=== PATIENT | female | born 1970 | race Caucasian/White ===

== ENCOUNTER → 2016-05-31 | Outpatient (CLI) | payer MEDICARE, MEDICAID ==
[~2016-05-31] MED LIST: ATOR20TA15 PO; BLAC540C PO; CARV3.12 PO; ENAL20TA PO; ENAL5TAB PO; FERR324T4 PO; FIBE625T10 PO; FISH1000 PO; HUMSS SQ; LEVEMIR SQ; LEVO150T7 PO; LEVO200T4 PO; MULT1TAB46 PO; NALO1TAB PO; NORT10CA PO; NOVOLOGP2 SQ; OMEG100037 PO; OMEP40CA2 PO; PERC7.5T13 PO; PRAV20TA2 PO; PROM12.54 PO; PROM25TA10 PO; PROM25TA5 PO; RANI150T PO; REGL5TAB PO; RISP2TAB2 PO; RISP2TAB37 PO; SEVE800T PO; SUCR5CHW CHEW; TEMA15CA PO; VIST25CA PO; VITA2000 PO; VITA250C3 CHEW
[2016-05-31 08:29] LABS: LDL CHOLESTEROL 43 MG/DL (0-99)
[2016-05-31 15:56] LABS: HEMOGLOBIN A1a 1.2 %; HEMOGLOBIN A1b 2.6 %; HEMOGLOBIN LA1C 2.4 %; HEMOGLOBIN P3 5.1 %
== END ==
LOC: CLAB 07:24
DX: E10.65 Type 1 diabetes mellitus with hyperglycemia (principal); E55.9 Vitamin D deficiency, unspecified
CPT/HCPCS: 36415; 80061; 82306; 83036

== ENCOUNTER → 2016-07-30 | Outpatient (CLI) | payer MEDICARE, MEDICAID | LOC: CLAB 15:42 | DX: E10.65 Type 1 diabetes mellitus with hyperglycemia (principal) | CPT/HCPCS: 36415; 82947; 84681 ==

== ENCOUNTER → 2016-09-04 | Outpatient (CLI) | payer MEDICARE, MEDICAID ==
[2016-09-04 08:18] LABS: AUTOMATED NEUTROPHIL # 8.1 TH/MM3 (1.8-7.7); BASOPHIL # 0.2 TH/MM3 (0-0.2); BASOPHIL % 1.6 % (0.0-2.0); EOSINOPHIL # 0.3 TH/MM3 (0-0.4); EOSINOPHIL % 2.1 % (0.0-4.0); HEMO FLAGS DIFF FINAL; LYMPH % 22.4 % (9.0-44.0); LYMPHOCYTE # 2.7 TH/MM3 (1.0-4.8); MEAN CELL VOLUME 92.5 FL (80.0-100.0); MEAN CORPUSCULAR HEMOGLOBIN 29.5 PG (27.0-34.0); MEAN CORPUSCULAR HGB CONC 31.9 % (32.0-36.0); MONO % 6.4 % (0.0-8.0); NEUT % 67.5 % (16.0-70.0); PLATELET COUNT 409 TH/MM3 (150-450); RED BLOOD COUNT 3.89 MIL/MM3 (4.00-5.30); RED CELL DISTRIBUTION WIDTH 12.5 % (11.6-17.2)
[2016-09-04 08:40] LABS: ANION GAP 8 MEQ/L (5-15); AST (GOT) 23 U/L (15-37); BICARBONATE 28.8 MEQ/L (21.0-32.0); BLOOD UREA NITROGEN 39 MG/DL (7-18); CHLORIDE 103 MEQ/L (98-107); GLOMERULAR FILTRATION RATE 12 ML/MIN (>89); GLUCOSE,FASTING 86 MG/DL (74-99); POTASSIUM 3.6 MEQ/L (3.5-5.1); SODIUM (NA) 140 MEQ/L (136-145)
[2016-09-04 08:43] LABS: ALKALINE PHOSPHATASE 102 U/L (45-117); ALT (GPT) 42 U/L (10-53); TOTAL BILIRUBIN ADULT 0.3 MG/DL (0.2-1.0)
== END ==
LOC: CLAB 07:32
PROVIDERS: ATTEND Internal Medicine Gastroenterology
DX: R11.10 Vomiting, unspecified (principal); R19.7 Diarrhea, unspecified
CPT/HCPCS: 36415; 80053; 83690; 85025

== ENCOUNTER → 2016-09-30 | Outpatient (CLI) | payer MEDICARE, MEDICAID ==
[~2016-09-30] MED LIST changes: -ENAL20TA PO; -HUMSS SQ; -LEVO200T4 PO; -OMEG100037 PO; -PERC7.5T13 PO; -PRAV20TA2 PO; -PROM25TA5 PO; -RISP2TAB2 PO
[2016-09-30 09:58] LABS: ANION GAP 8 MEQ/L (5-15)
[2016-09-30 10:00] LABS: ALKALINE PHOSPHATASE 89 U/L (45-117); ALT (GPT) 33 U/L (10-53); AST (GOT) 23 U/L (15-37); BLOOD UREA NITROGEN 63 MG/DL (7-18); CHLORIDE 102 MEQ/L (98-107); FREE T3 1.49 PG/ML (2.18-3.98); FREE T4 1.32 NG/DL (0.76-1.46); GLOMERULAR FILTRATION RATE 11 ML/MIN (>89); HDL CHOLESTEROL 56.4 MG/DL (40.0-60.0); LDL CHOLESTEROL 42 MG/DL (0-99); LDL CHOLESTEROL DIRECT 61 MG/DL (0-99); POTASSIUM 3.9 MEQ/L (3.5-5.1); SODIUM (NA) 138 MEQ/L (136-145); TOTAL BILIRUBIN ADULT 0.2 MG/DL (0.2-1.0)
[2016-09-30 10:11] LABS: GLUCOSE,FASTING 39 MG/DL (74-99)
[2016-09-30 15:41] LABS: HEMOGLOBIN A1a 1.4 %; HEMOGLOBIN A1b 0.8 %; HEMOGLOBIN Ao 80.6 %; HEMOGLOBIN F 1.4 %; HEMOGLOBIN LA1C 2.3 %; HEMOGLOBIN P3 5.4 %
== END ==
LOC: CLAB 08:48
DX: E55.9 Vitamin D deficiency, unspecified (principal); E03.9 Hypothyroidism, unspecified; E10.65 Type 1 diabetes mellitus with hyperglycemia
CPT/HCPCS: 36415; 80053; 80061; 82306; 83036; 83721; 84439; 84443; 84481

== ENCOUNTER → 2016-11-20 | Day surgery (SDC) | payer MEDICARE, MEDICAID ==
[~2016-11-20] MED LIST changes: +LACTATED RINGER'S 1000 ML INJ 1,000 ML ONE; +LEVOFLOXACIN 500 MG PREMIX INJ 100 ML IV ONE; +ONABOTULINUMTOXINA INJ 100 UNITS/VIAL ONE; +PROPOFOL 200 MG/20 ML AMP IV ONE; +SODIUM CHLORIDE 0.9% INJ 10 ML ONE
--- NOTE | 2016-11-20 10:07 | GIPROC ---
[facility] [address] [facility], [address] EGD WITH DILATION PROCEDURE REPORT EXAM DATE: 11/20/2016 PATIENT NAME: Temitope Marc MR#: [id number] BIRTHDATE: 1970 ATTENDING: Gem Davison MD ORDER #: [id number] [employer] DIRECTOR: Mary Alexander RN STATUS: outpatient INDICATIONS: The patient is a 46 yr old female here for an EGD with dilation due to gastroparesis, dysphagia PROCEDURE PERFORMED: EGD w/ biopsy EGD w/ directed submucosal injection(s), any substance EGD w/ dilation of esophagus via guidewire MEDICATIONS: None and Per Anesthesia. TOPICAL ANESTHETIC: none CONSENT: The patient understands the risks and benefits of the procedure and understands that these risks include, but are not limited to: sedation, allergic reaction, infection, perforation and/or bleeding. Alternative means of evaluation and treatment include, among others: physical exam, x-rays, and/or surgical intervention. The patient elects to proceed with this endoscopic procedure. medical equipment was checked for proper function. Hand hygiene and appropriate measures for infection prevention was taken. After the risks, benefits and alternatives of the procedure were thoroughly explained, Informed consent was verified, confirmed and timeout was successfully executed by the treatment team. The patient was anesthetized with topical anesthesia and the EG-2990i ([id number]), EC-2990i ([id number]), and EG-2990i ([id number]) endoscope was introduced through the mouth and advanced to the second portion of the duodenum. The instrument was slowly withdrawn as the mucosa was fully examined. Gastritis antrum-biopsy esophagitis distal esophagus -biopsy esophageal spasm. Botox injected 100 units in pyloric channel-25 units in each quadrant. Dilation was performed at gastroesophageal junction. DILATOR: SIZE(S): RESISTANCE: HEME: APPEARANCE: Dilator: Savary over guidewire Size(s): 16 COMMENT: Retroflexed views revealed a hiatal hernia ADVERSE EVENTS: There were no complications. IMPRESSIONS: 1. Gastritis antrum-biopsy esophagitis distal esophagus -biopsy esophageal spasm 2. Retroflexed views revealed a hiatal hernia RECOMMENDATIONS: 1. Anti-reflux regimen 2. Continue PPI 3. Avoid NSAIDS 4. Fu nephrology REPEAT EXAM: EGD pending biopsy results Gem Davison MD eSigned: Gem Davison MD 11/20/2016 10:07 AM cc: Joyce Angulo PATIENT NAME: Temitope Marc MR#: [id number]
== END | disposition home or self-care (01) ==
LOC: ESDC 07:17
PROVIDERS: ATTEND Internal Medicine Gastroenterology
DX: K31.84 Gastroparesis (principal); R13.10 Dysphagia, unspecified; K29.70 Gastritis, unspecified, without bleeding; K20.9 Esophagitis, unspecified; K22.4 Dyskinesia of esophagus; K44.9 Diaphragmatic hernia without obstruction or gangrene; E11.9 Type 2 diabetes mellitus without complications; Z79.4 Long term (current) use of insulin
CPT/HCPCS: 00740; 43236; 43239; 43248; 82948; 88305; 88312; J0585; J1956; J3010; J7120

== ENCOUNTER → 2017-01-07 | Outpatient (CLI) | payer MEDICARE, MEDICAID ==
[~2017-01-07] MED LIST changes: -LACTATED RINGER'S 1000 ML INJ 1,000 ML ONE; -LEVOFLOXACIN 500 MG PREMIX INJ 100 ML IV ONE; -ONABOTULINUMTOXINA INJ 100 UNITS/VIAL ONE; -PROPOFOL 200 MG/20 ML AMP IV ONE; -SODIUM CHLORIDE 0.9% INJ 10 ML ONE
[2017-01-07 11:07] LABS: ANION GAP 7 MEQ/L (5-15); AST (GOT) 205 U/L (15-37); BICARBONATE 30.3 MEQ/L (21.0-32.0); BLOOD UREA NITROGEN 35 MG/DL (7-18); CHLORIDE 101 MEQ/L (98-107); GLOMERULAR FILTRATION RATE 15 ML/MIN (>89); GLUCOSE,FASTING 90 MG/DL (74-99); POTASSIUM 3.7 MEQ/L (3.5-5.1); SODIUM (NA) 138 MEQ/L (136-145)
[2017-01-07 11:18] LABS: ALKALINE PHOSPHATASE 177 U/L (45-117); ALT (GPT) 263 U/L (10-53); FREE T3 1.73 PG/ML (2.18-3.98); FREE T4 0.98 NG/DL (0.76-1.46); HDL CHOLESTEROL 105.5 MG/DL (40.0-60.0); LDL CHOLESTEROL 41 MG/DL (0-99); TOTAL BILIRUBIN ADULT 0.3 MG/DL (0.2-1.0)
[2017-01-07 17:05] LABS: HEMOGLOBIN A1a 1.3 %; HEMOGLOBIN A1b 0.9 %; HEMOGLOBIN Ao 81.1 %; HEMOGLOBIN F 1.3 %; HEMOGLOBIN LA1C 2.1 %; HEMOGLOBIN P3 4.3 %
== END ==
LOC: CLAB 09:50
DX: E03.9 Hypothyroidism, unspecified (principal); E10.65 Type 1 diabetes mellitus with hyperglycemia
CPT/HCPCS: 36415; 80053; 80061; 83036; 84439; 84443; 84481

== ENCOUNTER → 2017-02-17 | Outpatient (CLI) | payer MEDICARE, MEDICAID ==
[~2017-02-17] MED LIST changes: +SEVE800 PO; -SEVE800T PO
[2017-02-17 14:45] LABS: ANA SCREEN NEG (NEG)
[2017-02-17 16:08] LABS: INDIRECT BILIRUBIN 0.2 MG/DL (0.0-0.8); TOTAL BILIRUBIN ADULT 0.3 MG/DL (0.2-1.0)
[2017-02-19 23:51] LABS: IGA SERUM 309 mg/dL (81-463)
[2017-02-19 23:53] LABS: (LFP)ALT 57 U/L (6-29); A2 MACROGLOBULIN 383 mg/dL (106-279); FIBROSIS STAGE F2; GGT(LFP) 242 U/L (3-55); HAPTOGLOBIN (LFP) 72 mg/dL (43-212); NECROINFLAMM ACT GRADE A1-A2; REFERENCE ID 1693930; TOTAL BILIRUBIN (LFP) 0.3 mg/dL (0.2-1.2)
[2017-02-20 03:50] LABS: ENDOMYSIAL AB TITER ND (<1:5); TISSUE TRANSGLUTAMINASE AB LESS THAN 1 U/mL (0-4)
[2017-02-21 05:40] LABS: MITOCHONDRIAL ABS LESS THAN 20.0 U (<=20.0)
== END ==
LOC: CLAB 07:53
PROVIDERS: ATTEND Internal Medicine Gastroenterology
DX: R79.89 Other specified abnormal findings of blood chemistry (principal); I10 Essential (primary) hypertension; R11.0 Nausea
CPT/HCPCS: 36415; 80074; 80076; 82103; 82172; 82247; 82390; 82784; 82977; 83010; 83516; 83520; 83883; 84460; 86038; 86255

== ENCOUNTER → 2017-04-14 | Outpatient (CLI) | payer MEDICARE, MEDICAID ==
[2017-04-14 09:37] LABS: ALBUMIN 2.6 GM/DL (3.4-5.0); AST (GOT) 110 U/L (15-37); BICARBONATE 28.3 MEQ/L (21.0-32.0); BLOOD UREA NITROGEN 31 MG/DL (7-18); CALCIUM 8.2 MG/DL (8.5-10.1); CHLORIDE 98 MEQ/L (98-107); CREATININE 3.42 MG/DL (0.50-1.00); GLOMERULAR FILTRATION RATE 15 ML/MIN (>89); GLUCOSE,FASTING 321 MG/DL (74-99); SODIUM (NA) 134 MEQ/L (136-145)
[2017-04-14 09:38] LABS: CHOLESTEROL 165 MG/DL (120-200); TRIGLYCERIDES 166 MG/DL (42-150)
[2017-04-14 09:54] LABS: ALKALINE PHOSPHATASE 156 U/L (45-117); ALT (GPT) 121 U/L (10-53); CHOLESTEROL/ HDL RATIO 2.21 RATIO; FREE T3 1.41 PG/ML (2.18-3.98); FREE T4 0.97 NG/DL (0.76-1.46); HDL CHOLESTEROL 74.5 MG/DL (40.0-60.0); LDL CHOLESTEROL 57 MG/DL (0-99); TOTAL BILIRUBIN ADULT 0.2 MG/DL (0.2-1.0); TOTAL PROTEIN 6.1 GM/DL (6.4-8.2)
[2017-04-14 09:58] LABS: HEMOGLOBIN A1C 8.6 % (4.3-6.0)
== END ==
LOC: CLAB 08:54
DX: E03.9 Hypothyroidism, unspecified (principal); E10.65 Type 1 diabetes mellitus with hyperglycemia; E55.9 Vitamin D deficiency, unspecified
CPT/HCPCS: 36415; 80053; 80061; 82306; 83036; 84439; 84443; 84481

== ENCOUNTER 2017-07-26 14:15 | Emergency (ER) | payer MEDICARE, MEDICAID ==
[~2017-07-26] VITALS: Ht 170.2 cm; Wt 69.0 kg
[~2017-07-26 14:15] MED LIST changes: -CARV3.12 PO; -FERR324T4 PO; -NALO1TAB PO
[2017-07-26 14:25] VITALS: BP 144/87; PULSE 94; RESP 15; TEMP 98.6; O2SAT 97
[2017-07-26] MEDS ORDERED: METOCLOPRAMIDE HCL 10 MG/2 ML VIAL IV PUSH ONE (15:15)
--- NOTE | 2017-07-26 15:20 | PD ---
HPI Chief Complaint: GI Complaint Time Seen by Provider: 15:01 Travel History International Travel<30 days: No Contact w/Intl Traveler<30days: No Traveled to known affect area: No History of Present Illness HPI This is a 46-year-old female with history of schizophrenia, type 1 diabetes, gastroparesis, end-stage renal disease on peritoneal dialysis on a daily basis. She presents for evaluation of nausea and vomiting. Symptoms started 3 days ago. She reports several episodes of nonbloody emesis which is worse after eating. She denies any new abdominal pain. She denies fevers, chills, dysuria , increased urinary frequency or hesitancy. She reports that her blood sugar was low this morning at 61. She reports that she has not missed any dialysis sessions at home. She has no other complaints. PFSH Past Medical History Arthritis: Yes Asthma: No Autoimmune Disease: No Blood Disorders: No Anxiety: Yes Depression: No Heart Rhythm Problems: No Cancer: No Cardiovascular Problems: Yes High Cholesterol: Yes Chemotherapy: No Chest Pain: No Congestive Heart Failure: No COPD: No Cerebrovascular Accident: No Diabetes: Yes Diminished Hearing: No Endocrine: Yes Gastrointestinal Disorders: Yes (GASTROPORESIS, NAUSEA) GERD: Yes Glaucoma: No Genitourinary: Yes Headaches: No Hepatitis: No Hiatal Hernia: No Hypertension: Yes Immune Disorder: No Kidney Stones: No Musculoskeletal: Yes (H/O OSTEOMYELITIS RT HAND) Neurologic: No Psychiatric: Yes (TAKES RISPERDOL DUE TO HALLUCINATIONS) Reproductive: No Respiratory: No Immunizations Current: No Migraines: No Myocardial Infarction: No Radiation Therapy: No Renal Failure: Yes (PERITONEAL DIALYSIS) Seizures: No Sickle Cell Disease: No Sleep Apnea: No Thyroid Disease: Yes Ulcer: Yes PNEUMOCCOCAL Vaccine (Year): 2 ?: Not LMP: 3 YEARS Menopausal: Yes : 2 Miscarriage: 2 Past Surgical History Abdominal Surgery: Yes (HERNIA REPAIR) AICD: No Appendectomy: No Arteriovenous Shunt: No Body Medical Devices: PD CATH Cardiac Surgery: No Cholecystectomy: No Ear Surgery: No Endocrine Surgery: No Eye Surgery: Yes (laser eye surgery) Genitourinary Surgery: No Gynecologic Surgery: No Insulin Pump: No Joint Replacement: No Oral Surgery: No Pacemaker: No Thoracic Surgery: No Other Surgery: Yes (RIGHT HAND) Family History Family Hypercholesterolemia: Yes Social History Alcohol Use: No Tobacco Use: Yes Substance Use: No (DENIES- BUT REPORTS TAKING UNPRESCRIBED PERCOCET TODAY ) Allergies-Medications (Allergen,Severity, Reaction): Coded Allergies: acetaminophen (Verified Allergy, Severe, VOMITING, 07/26/17) amitriptyline (Verified Allergy, Severe, HALLUCINATIIONS, 07/26/17) erythromycin base (Verified Allergy, Severe, N/V/D, 07/26/17) haloperidol (Verified Allergy, Severe, Confusion, 07/26/17) hydrocodone (Verified Allergy, Severe, ITCHING, 07/26/17) lorazepam (Verified Allergy, Severe, VOMITING, 07/26/17) povidone-iodine (Verified Allergy, Severe, Rash, 07/26/17) propoxyphene (Verified Allergy, Severe, VOMITING, 07/26/17) *MDRO Multi-Drug Resistant Organism (Verified Adverse Reaction, Unknown, ) Hx 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 Reported Meds & Prescriptions Reported Meds & Active Scripts Active Risperdal (Risperidone) 2 Mg Tab 2 Mg PO DAILY Temazepam 15 Mg Cap 15 Mg PO HS PRN Phenergan (Promethazine HCl) 25 Mg Tablet 25 Mg PO Q6H PRN Ranitidine (Ranitidine HCl) 150 Mg Tab 150 Mg PO DAILY Reported Reglan (Metoclopramide HCl) 5 Mg Tab 5 Mg PO TIDAC Nortriptyline (Nortriptyline HCl) 10 Mg Cap 30 Mg PO HS Promethazine (Promethazine HCl) 12.5 Mg Tab 25 Mg PO TID PRN Vitamin C (Ascorbic Acid) 250 Mg Chew 500 Mg CHEW DAILY Fiber (Calcium Polycarbophil) 625 Mg Tab 625 Mg PO BID PRN Black Cohosh (Black Cohosh Extract) 40 Mg Cap 40 Mg PO DAILY Fish Oil (Holiday-3 Fatty Acids) 1,000 Mg Cap 1 Cap PO DAILY Vitamin D3 (Cholecalciferol) 2,000 Unit Cap 2,000 Units PO DAILY Multi Vitamin Daily (Multiple Vitamin) 1 Tab Tab 1 Tab PO DAILY Omeprazole 40 Mg Cap 40 Mg PO DAILY Enalapril (Enalapril Maleate) 5 Mg Tab 5 Mg PO DAILY Levemir Inj (Insulin Detemir) 1,000 unit/ 10 ML Vial 8 Units SQ AC DINNER Do not mix with any other Insulin. Levemir Inj (Insulin Detemir) 1,000 unit/ 10 ML Vial 9 Units SQ AC BREAKFAST Do not mix with any other Insulin. Novolog Inj (Insulin Aspart) 1,000 Unit/10 Ml Vial 0 SQ DIRECTED Sliding Scale as directed. Levothyroxine (Levothyroxine Sodium) 150 Mcg Tab 200 Mcg PO DAILY Vistaril (Hydroxyzine Pamoate) 25 Mg Cap 25 Mg PO Q8HR PRN Atorvastatin (Atorvastatin Calcium) 20 Mg Tab 20 Mg PO HS Review of Systems Except as stated in HPI: all other systems reviewed are Neg Physical Exam Narrative GENERAL: Well-developed well-nourished female no acute distress SKIN: Warm and dry. HEAD: Atraumatic. Normocephalic. EYES: Pupils equal and round. No scleral icterus. No injection or drainage. ENT: No nasal bleeding or discharge. Mucous membranes pink and moist. NECK: Trachea midline. No JVD. CARDIOVASCULAR: Regular rate and rhythm. No murmur appreciated. RESPIRATORY: No accessory muscle use. Clear to auscultation. Breath sounds equal bilaterally. GASTROINTESTINAL: Abdomen soft, non-tender, nondistended. Peritoneal dialysis catheter noted. MUSCULOSKELETAL: No obvious deformities. No clubbing. No cyanosis. No edema. NEUROLOGICAL: Awake and alert. No obvious cranial nerve deficits. Motor grossly within normal limits. Normal speech. Data Data Last Documented VS Vital Signs Date Time Temp Pulse Resp B/P (MAP) Pulse Ox O2 Delivery O2 Flow Rate FiO2 07/26/17 14:25 98.6 94 15 144/87 (106) 97 Orders Orders Complete Blood Count With Diff (07/26/17 15:13) Comprehensive Metabolic Panel (07/26/17 15:13) Iv Access Insert/Monitor (07/26/17 15:13) Magnesium (Mg) (07/26/17 15:13) Beta Hydroxybutyrate (Acetone) (07/26/17 15:13) Metoclopramide Inj (Reglan Inj) (07/26/17 15:15) Insulin Human Regular Inj (Novolin R Inj (07/26/17 17:15) Ed Discharge Order (07/26/17 18:45) Labs Laboratory Tests Test 07/26/17 15:45 White Blood Count 5.9 TH/MM3 Red Blood Count 4.45 MIL/MM3 Hemoglobin 13.0 GM/DL Hematocrit 39.6 % Mean Corpuscular Volume 88.9 FL Mean Corpuscular Hemoglobin 29.2 PG Mean Corpuscular Hemoglobin Concent 32.8 % Red Cell Distribution Width 12.8 % Platelet Count 299 TH/MM3 Mean Platelet Volume 8.3 FL Neutrophils (%) (Auto) 53.4 % Lymphocytes (%) (Auto) 35.8 % Monocytes (%) (Auto) 6.2 % Eosinophils (%) (Auto) 3.3 % Basophils (%) (Auto) 1.3 % Neutrophils # (Auto) 3.2 TH/MM3 Lymphocytes # (Auto) 2.1 TH/MM3 Monocytes # (Auto) 0.4 TH/MM3 Eosinophils # (Auto) 0.2 TH/MM3 Basophils # (Auto) 0.1 TH/MM3 CBC Comment DIFF FINAL Differential Comment Blood Urea Nitrogen 19 MG/DL Creatinine 3.08 MG/DL Random Glucose 387 MG/DL Total Protein 6.9 GM/DL Albumin 3.2 GM/DL Calcium Level 8.7 MG/DL Magnesium Level 2.1 MG/DL Alkaline Phosphatase 176 U/L Aspartate Amino Transf (AST/SGOT) 78 U/L Alanine Aminotransferase (ALT/SGPT) 87 U/L Total Bilirubin 0.3 MG/DL Sodium Level 135 MEQ/L Potassium Level 4.1 MEQ/L Chloride Level 98 MEQ/L Carbon Dioxide Level 28.0 MEQ/L Anion Gap 9 MEQ/L Estimat Glomerular Filtration Rate 16 ML/MIN B-Hydroxybutyrate 0.13 MMOL/L [facility] Medical Decision Making Medical Screen Exam Complete: Yes Emergency Medical Condition: Yes Medical Record Reviewed: Yes Differential Diagnosis Gastroparesis, dehydration, electrolyte abnormality, gastroenteritis, obstruction, DKA Narrative Course Lab work, EKG ordered. The patient was given Reglan with significant improvement in her symptoms. She was able to tolerate oral hydration with no difficulty afterwards. CBC is unremarkable. Beta hydroxybutyrate is normal. CMP reveals a GFR of 16 which is consistent with her baseline renal function. AST 78, ALT 87. Random glucose is 387. She was given 6 unit insulin bolus with significant improvement in her blood sugar. At this point time the plan is to discharge the patient. Diagnosis Primary Impression: Nausea and vomiting Additional Impression: Hyperglycemia Additional Instructions: Take your medication as prescribed, slowly advance diet as tolerated, follow-up with primary care physician and return for any emergent medical conditions. Med/Other Pt SpecificInfo: No Change to Meds Disposition: 01 DISCHARGE HOME Condition: Stable Nic Otero Jul 26, 2017 15:20
[2017-07-26 16:25] LABS: AUTOMATED NEUTROPHIL # 3.2 TH/MM3 (1.8-7.7); BASOPHIL # 0.1 TH/MM3 (0-0.2); BASOPHIL % 1.3 % (0.0-2.0); EOSINOPHIL # 0.2 TH/MM3 (0-0.4); EOSINOPHIL % 3.3 % (0.0-4.0); HEMATOCRIT 39.6 % (35.0-46.0); LYMPH % 35.8 % (9.0-44.0); LYMPHOCYTE # 2.1 TH/MM3 (1.0-4.8); MEAN CELL VOLUME 88.9 FL (80.0-100.0); MEAN CORPUSCULAR HEMOGLOBIN 29.2 PG (27.0-34.0); MEAN CORPUSCULAR HGB CONC 32.8 % (32.0-36.0); MEAN PLATELET VOLUME 8.3 FL (7.0-11.0); MONO % 6.2 % (0.0-8.0); MONOCYTE # 0.4 TH/MM3 (0-0.9); NEUT % 53.4 % (16.0-70.0); PLATELET COUNT 299 TH/MM3 (150-450); RED BLOOD COUNT 4.45 MIL/MM3 (4.00-5.30); RED CELL DISTRIBUTION WIDTH 12.8 % (11.6-17.2); WHITE BLOOD COUNT 5.9 TH/MM3 (4.0-11.0)
[2017-07-26 16:44] LABS: ALT (GPT) 87 U/L (10-53)
[2017-07-26 16:46] LABS: ALKALINE PHOSPHATASE 176 U/L (45-117); TOTAL BILIRUBIN ADULT 0.3 MG/DL (0.2-1.0); TOTAL PROTEIN 6.9 GM/DL (6.4-8.2)
[2017-07-26 16:49] LABS: ALBUMIN 3.2 GM/DL (3.4-5.0); AST (GOT) 78 U/L (15-37); BLOOD UREA NITROGEN 19 MG/DL (7-18); CALCIUM 8.7 MG/DL (8.5-10.1); CHLORIDE 98 MEQ/L (98-107); CREATININE 3.08 MG/DL (0.50-1.00); GLOMERULAR FILTRATION RATE 16 ML/MIN (>89); GLUCOSE,RANDOM 387 MG/DL (74-106); MAGNESIUM 2.1 MG/DL (1.5-2.5); SODIUM (NA) 135 MEQ/L (136-145)
[2017-07-26] MEDS ORDERED: INSULIN HUMAN REGULAR 1,000 UNITS/10 ML VIAL IV PUSH ONE (17:15)
--- NOTE | 2017-07-28 00:39 | EKG ---
Date Performed: 07/26/2017 Time Performed: 15:52:42 PTAGE: 46 years EKG: Sinus rhythm POSSIBLE LEFT ATRIAL ENLARGEMENT BORDERLINE ECG PREVIOUS TRACING : 03/20/2015 16.39 Since the previous tracing, no significant change noted DOCTOR: Micha Avina Interpretating Date/Time 07/28/2017 00:36:56
== END 2017-07-26 19:01 | disposition home or self-care (01) ==
LOC: NEPE 14:15
DX: R11.2 Nausea with vomiting, unspecified (principal); E10.65 Type 1 diabetes mellitus with hyperglycemia; R94.31 Abnormal electrocardiogram [ECG] [EKG]; R10.9 Unspecified abdominal pain; I12.0 Hypertensive chronic kidney disease with stage 5 chronic kidney disease or end stage renal disease; N18.6 End stage renal disease; K21.9 Gastro-esophageal reflux disease without esophagitis; E07.9 Disorder of thyroid, unspecified; E78.00 Pure hypercholesterolemia, unspecified; F20.9 Schizophrenia, unspecified; Z79.4 Long term (current) use of insulin; Z72.0 Tobacco use; Z99.2 Dependence on renal dialysis
CPT/HCPCS: 80053; 82010; 83735; 85025; 93005; 96374; 96375; 99284; J1815; J2765

== ENCOUNTER → 2017-08-12 | Outpatient (CLI) | payer MEDICARE, MEDICAID ==
[~2017-08-12] MED LIST changes: -SEVE800 PO; -SUCR5CHW CHEW
[2017-08-12 10:32] LABS: FREE T3 2.25 PG/ML (2.18-3.98); FREE T4 1.14 NG/DL (0.76-1.46)
== END ==
LOC: CLAB 09:22
DX: E03.9 Hypothyroidism, unspecified (principal)
CPT/HCPCS: 36415; 84439; 84443; 84481

== ENCOUNTER → 2017-09-04 | Outpatient (CLI) | payer MEDICARE, MEDICAID ==
[2017-09-04 08:55] LABS: DIRECT BILIRUBIN ADULT 0.1 MG/DL (0.0-0.2)
[2017-09-04 08:57] LABS: INDIRECT BILIRUBIN 0.1 MG/DL (0.0-0.8); TOTAL BILIRUBIN ADULT 0.2 MG/DL (0.2-1.0); TOTAL PROTEIN 6.7 GM/DL (6.4-8.2)
== END ==
LOC: CLAB 07:34
PROVIDERS: ATTEND Internal Medicine Gastroenterology
DX: R79.89 Other specified abnormal findings of blood chemistry (principal)
CPT/HCPCS: 36415; 80076

== ENCOUNTER → 2017-09-05 | Outpatient (CLI) | payer MEDICARE, MEDICAID | LOC: CLAB 10:32 | PROVIDERS: ATTEND Family Medicine | DX: N91.2 Amenorrhea, unspecified (principal); Z11.3 Encounter for screening for infections with a predominantly sexual mode of transmission | CPT/HCPCS: 36415; 83001; 86317; 86592; G0475; 87389 ==

== ENCOUNTER → 2017-10-03 | Outpatient (CLI) | payer MEDICARE, MEDICAID ==
[2017-10-03 15:59] LABS: ALBUMIN 2.9 GM/DL (3.4-5.0); DIRECT BILIRUBIN ADULT 0.1 MG/DL (0.0-0.2)
[2017-10-03 16:00] LABS: INDIRECT BILIRUBIN 0.2 MG/DL (0.0-0.8); TOTAL BILIRUBIN ADULT 0.3 MG/DL (0.2-1.0); TOTAL PROTEIN 6.2 GM/DL (6.4-8.2)
== END ==
LOC: CLAB 14:57
PROVIDERS: ATTEND Internal Medicine Gastroenterology
DX: R79.89 Other specified abnormal findings of blood chemistry (principal)
CPT/HCPCS: 36415; 80076